=== PATIENT | female | born 1990 | race American Indian/Alaskan Native ===

== ENCOUNTER 2017-01-26 07:01 | Inpatient (IN) | payer MEDICAID, OTHER ==
[2017-01-26] MEDS ORDERED: Misoprostol 400 MCG (4 X 100 MCG TAB) RECTAL PRN (08:18)
[2017-01-26] MEDS ORDERED: Nalbuphine 10 MG/1 ML Vial IVPUSH PRN (08:18)
[2017-01-26] MEDS ORDERED: Carboprost Tromethamine 250 MCG/1 ML Amp IM PRN (08:18)
[2017-01-26] MEDS ORDERED: Lidocaine 1% 30 ML SDV INJECT PRN (08:18)
[2017-01-26] MEDS ORDERED: Sodium Chloride 0.9% 10 ML Syringe FLUSH PRN (08:18)
[2017-01-26] MEDS ORDERED: Lactated Ringers 500 ML IV ONE (08:18)
[2017-01-26] MEDS ORDERED: Methylergonovine 0.2 MG/1 ML Amp IM PRN (08:18)
--- NOTE | 2017-01-26 08:22 | PCM.LDHP ---
L&D History of Present Illness - General Date of Service: 01/26/17 Admit Problem/Dx: Patient Status Order with Admit Dx/Problem 01/26/17 08:18 Patient Status [ADT] Routine Admission Diagnosis/Problem Admission Diagnosis/Problem care - History of Present Illness Introduction:: 26-year-old at 40 weeks 2 days presented to labor and delivery with increased contractions since 4 AM today. She states the contractions started on his mild cramping. Now, they are 3-5 minutes apart and she is having to breathe through all of them. Baby has been active. No vaginal bleeding or leaking of fluid. No new headaches or vision changes. - Related Data Allergies/Adverse Reactions: Allergies Allergy/AdvReac Type Severity Reaction Status Date / Time No Known Allergies Allergy Verified 01/26/17 07:34 Past Medical History - Past Surgical History HEENT Surgical History: Reports: Tonsillectomy Social & Family History - Tobacco Use Smoking Status *Q: Current Some Day Smoker - Alcohol Use Alcohol Use History: Yes Alcohol Use in Last Twelve Months: No - Sexual History Sexual History: Reports: Single Partner (Currently) - Living Situation & Occupation Living situation: Reports: Other (Long-term significant other, [place]) Occupation: Employed H&P Review of Systems - Review of Systems: Review Of Systems: See Below General: Reports: No Symptoms HEENT: Reports: No Symptoms Pulmonary: Reports: No Symptoms Cardiovascular: Reports: No Symptoms Gastrointestinal: Reports: No Symptoms Genitourinary: Reports: No Symptoms Musculoskeletal: Reports: No Symptoms Skin: Reports: No Symptoms L&D Exam - Exam Exam: See Below - Vital Signs Weight: 92.079 kg - OB Specific Contraction Duration (sec): 60 Contraction Frequency (min): 3-4 Contraction Intensity: Moderate Movement: Active Heart Tones: Present Heart Tones per Min: 130 Heart Rate (FHR) Variability: Moderate (6-25 bmp) Presentation: Vertex - Queen Score Queen Score Cervix Position: Posterior Queen Score Consistency: Soft Queen Score Effacement: 51-70% Queen Score Dilation: 3-4 cm Queen Score Infant's Station: -3 Queen Score Total: 6 - Exam General: Alert, Oriented Lungs: Clear to Auscultation, Normal Respiratory Effort Cardiovascular: Regular Rate, Regular Rhythm. No: Systolic Murmur, Diastolic Murmur Abdomen: Normal Bowel Sounds Extremities: Normal Inspection Skin: Warm, Dry, Intact - Patient Data Lab Results Last 24 hrs: Laboratory Results - last 24 hr 01/26/17 Range/Units 07:55 WBC 8.9 (5.0-10.0) 10^3/uL RBC 4.45 (4.2-5.4) 10^6/uL Hgb 13.4 (12.0-16.0) g/dL Hct 39.0 (37.0-47.0) % MCV 87.6 (80-100) fL MCH 30.1 (27.0-34.0) pg MCHC 34.4 (33.0-35.0) g/dL Plt Count 245 (150-450) 10^3/uL Result Diagrams: 01/26/17 07:55 - Problem List (1) care in third trimester SNOMED Code(s): 418027970, 29449176, 30513434, 398610907, 520905976 ICD Code: Z34.93 - ENCNTR FOR SUPRVSN OF NORMAL PREG, UNSP, THIRD TRIMESTER Status: Acute Current Visit: Yes (2) Anemia affecting in third trimester SNOMED Code(s): 47060328, 69966148 ICD Code: O99.013 - ANEMIA COMPLICATING , THIRD TRIMESTER Status: Acute Current Visit: Yes (3) Not immune to rubella SNOMED Code(s): 080795145 ICD Code: Z78.9 - OTHER SPECIFIED HEALTH STATUS Status: Acute Current Visit: Yes (4) Impaired glucose tolerance during Status: Acute Current Visit: Yes Problem List Initiated/Reviewed/Updated: Yes Orders Last 24hrs: Active Orders 24 hr Category Date Time Status Patient Status [ADT] Routine ADT 01/26/17 08:18 Ordered Communication Order [RC] ASDIRECTED Care 01/26/17 08:18 Ordered Heart Tones [RC] PER UNIT ROUTINE Care 01/26/17 08:18 Ordered Notify Provider Vital Signs OB [RC] ASDIRECTED Care 01/26/17 08:18 Ordered Notify Provider [RC] PRN Care 01/26/17 08:18 Ordered OB Check [OM.PC] Click To Edit Care 01/26/17 07:34 Ordered Pump Management, Intrathecal [RC] ASDIRECTED Care 01/26/17 08:18 Ordered Up ad Heather [RC] ASDIRECTED Care 01/26/17 08:18 Ordered Vital Signs [RC] PER UNIT ROUTINE Care 01/26/17 08:18 Ordered Clear Liquid Diet [DIET] Diet 01/26/17 Lunch Ordered CBC WITH AUTO DIFF [HEME] Routine Lab 01/26/17 08:21 Ordered Acetaminophen [Tylenol] Med 01/26/17 08:18 Ordered 650 mg PO Q4H PRN Carboprost Tromethamine [Hemabate DS] Med 01/26/17 08:18 Ordered 250 mcg IM ASDIRECTED PRN Lactated Ringers @ 125 MLS/HR(1000ml) Med 01/26/17 08:30 Ordered Lactated Ringers [Ringers, Lactated] 1,000 ml IV ASDIRECTED Lactated Ringers [Ringers, Lactated] 500 ml Med 01/26/17 08:18 Ordered IV .BOLUS Lidocaine 1% [Xylocaine-MPF 1%] Med 01/26/17 08:18 Ordered 10 ml INJECT ASDIRECTED PRN Methylergonovine [Methergine] Med 01/26/17 08:18 Ordered 0.2 mg IM ASDIRECTED PRN Misoprostol [Cytotec] Med 01/26/17 08:18 Ordered 800 mcg RECTAL ASDIRECTED PRN Nalbuphine [Nubain] Med 01/26/17 08:18 Ordered 10 mg IVPUSH Q3H PRN Ondansetron [Zofran] Med 01/26/17 08:18 Ordered 4 mg IV Q4H PRN Sodium Chloride 0.9% [Saline Flush] Med 01/26/17 08:18 Ordered 10 ml FLUSH ASDIRECTED PRN fentaNYL [Sublimaze] Med 01/26/17 08:18 Ordered 50 mcg IVPUSH Q1H PRN Saline Lock Insert [OM.PC] Routine Oth 01/26/17 08:18 Ordered Resuscitation Status Routine Resus Stat 01/26/17 08:18 Ordered Medication Orders Acetaminophen (Tylenol) 650 mg PO Q4H PRN PRN Reason: Pain (Mild 1-3) and fever Carboprost Tromethamine (Hemabate Ds) 250 mcg IM ASDIRECTED PRN PRN Reason: HEMORRHAGE Lactated Ringer's (Ringers, Lactated) 500 mls @ 999 mls/hr IV .BOLUS ONE Stop: 01/26/17 08:48 Lactated Ringer's (Ringers, Lactated) 1,000 mls @ 125 mls/hr IV ASDIRECTED PRIYA Lidocaine HCl (Xylocaine-Mpf 1%) 10 ml INJECT ASDIRECTED PRN PRN Reason: Perineal Repair Methylergonovine Maleate (Methergine) 0.2 mg IM ASDIRECTED PRN PRN Reason: Hemorrhage Misoprostol (Cytotec) 800 mcg RECTAL ASDIRECTED PRN PRN Reason: Hemorrhage Assessment/Plan Comment:: 26-year-old at 40 weeks 2 days in active labor. 1. Admit to labor and delivery. 2. Initiate routine prepartum orders. 3. Patient does desire intrathecal later on in labor. 4. Will AROM when able. 5. Expectant management. Anticipate vaginal delivery. Lani Johnson MD
[2017-01-26] MEDS: fentaNYL 100 MCG/2 ML SDV IVPUSH PRN ×2 (11:13→12:39)
--- NOTE | 2017-01-26 11:16 | PCM.PREANE ---
Preanesthetic Assessment - Procedure Proposed Procedure: Intarthecal Narcotics for labor pain - Anesthesia/Transfusion/Family Hx Anesthesia History: Prior Anesthesia Without Reaction Family History of Anesthesia Reaction: No Transfusion History: No Prior Transfusion(s) Intubation History: Unknown - Review of Systems General: No Symptoms Pulmonary: No Symptoms Cardiovascular: No Symptoms Gastrointestinal: No symptoms Neurological: No Symptoms Other: Reports: None - Physical Assessment NPO Status Date: 01/26/17 NPO Status Time: 10:00 Pulse: 92 O2 Sat by Pulse Oximetry: 99 Respiratory Rate: 16 Blood Pressure: 126/69 Temperature: 97.8 F Vital Signs: Last Vital Signs Temp 97.4 F 01/26/17 07:10 Pulse 83 01/26/17 07:10 Resp 16 01/26/17 07:10 BP 127/79 01/26/17 07:10 Pulse Ox Height: 1.57 m Weight: 92.079 kg ASA Class: 2 Mental Status: Alert & Oriented x3 Dentition: Reports: Normal Dentition Thyro-Mental Finger Breadths: 3 Mouth Opening Finger Breadths: 4 ROM/Head Extension: Full Lungs: Clear to auscultation, Normal respiratory effort Cardiovascular: Regular Rate, Regular Rhythm - Lab Values: Laboratory Last Values WBC 8.9 10^3/uL (5.0-10.0) 01/26/17 07:55 RBC 4.45 10^6/uL (4.2-5.4) 01/26/17 07:55 Hgb 13.4 g/dL (12.0-16.0) 01/26/17 07:55 Hct 39.0 % (37.0-47.0) 01/26/17 07:55 MCV 87.6 fL (80-100) 01/26/17 07:55 MCH 30.1 pg (27.0-34.0) 01/26/17 07:55 MCHC 34.4 g/dL (33.0-35.0) 01/26/17 07:55 Plt Count 245 10^3/uL (150-450) 01/26/17 07:55 - Allergies Allergies/Adverse Reactions: Allergies Allergy/AdvReac Type Severity Reaction Status Date / Time No Known Allergies Allergy Verified 01/26/17 07:34 - Blood Blood Available: No Product(s) Available: None - Anesthesia Plan Pre-Op Medication Ordered: None - Acknowledgements Anesthesia Type Planned: Spinal Pt an Appropriate Candidate for the Planned Anesthesia: Yes Alternatives and Risks of Anesthesia Discussed w Pt/Guardian: Yes Pt/Guardian Understands and Agrees with Anesthesia Plan: Yes Additional Comments: R/B of intarthecal narcotics is discussed with patient and she agreed. consent is signed. Patient decided to wait until the pain gets very unbearable to get the spinal narcotics. Denisa, her RN is informed. 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: - Past Surgical History HEENT Surgical History: Reports: Tonsillectomy - SUBSTANCE USE Smoking Status *Q: Current Some Day Smoker Tobacco Use Within Last Twelve Months: Cigarettes Second Hand Smoke Exposure: Yes Recreational Drug Use History: No - CURRENT (IN HOUSE) MEDS Current Meds: Current Medications Acetaminophen (Tylenol) 650 mg PO Q4H PRN PRN Reason: Pain (Mild 1-3) and fever Carboprost Tromethamine (Hemabate Ds) 250 mcg IM ASDIRECTED PRN PRN Reason: HEMORRHAGE Fentanyl (Sublimaze) 50 mcg IVPUSH Q1H PRN PRN Reason: Pain (moderate 4-6) Lactated Ringer's (Ringers, Lactated) 1,000 mls @ 125 mls/hr IV ASDIRECTED PRIYA Lidocaine HCl (Xylocaine-Mpf 1%) 10 ml INJECT ASDIRECTED PRN PRN Reason: Perineal Repair Methylergonovine Maleate (Methergine) 0.2 mg IM ASDIRECTED PRN PRN Reason: Hemorrhage Misoprostol (Cytotec) 800 mcg RECTAL ASDIRECTED PRN PRN Reason: Hemorrhage Nalbuphine HCl (Nubain) 10 mg IVPUSH Q3H PRN PRN Reason: Pain (moderate 4-6) Last Admin: 01/26/17 08:45 Dose: 10 mg Ondansetron HCl (Zofran) 4 mg IV Q4H PRN PRN Reason: Nausea/Vomiting Sodium Chloride (Saline Flush) 10 ml FLUSH ASDIRECTED PRN PRN Reason: Keep Vein Open Discontinued Medications Lactated Ringer's (Ringers, Lactated) 500 mls @ 999 mls/hr IV .BOLUS ONE Stop: 01/26/17 08:48 Last Admin: 01/26/17 08:45 Dose: 999 mls/hr
[2017-01-26] MEDS ORDERED: fentaNYL 100 MCG/2 ML SDV ITHECAL ONE ×2 (11:19→16:40)
[2017-01-26] MEDS: Ondansetron 4 MG/2 ML SDV IV PRN ×2 (11:20→16:33)
[2017-01-26] MEDS ORDERED: fentaNYL 100 MCG/2 ML SDV ONE ×2 (12:53→16:40)
[2017-01-26] MEDS: Lactated Ringers 1,000 ML IV SCH ×2 (13:11→20:28)
[2017-01-26] MEDS ORDERED: ePHEDrine 50 MG/ML SDV ONE (13:14)
[2017-01-26] MEDS ORDERED: ePHEDrine 50 MG/ML SDV IVPUSH PRN (13:38)
--- NOTE | 2017-01-26 13:38 | PCM.PRNOTE ---
- Free Text/Narrative Note: Patient ID'd. Chart reviewed, in sitting position L4-5 id'd sterile prep with betadine and draped. skin wheel with 1% lidocaine 24 G pencan needle advanced via 18 g introducer into SA space, negative blood, negative paresthesia, Positive CSF. 6 mg hyperbaric marcaine + 20 mcg sufentanyl + 30 mcg fentanyl + epinepherine wash. Immediate pain relief achieved. Level t8 bilateral. Hypotension treated with 15 mg ephedrine
[2017-01-26] MEDS ORDERED: ePHEDrine 50 MG/ML SDV IV ONE (16:40)
--- NOTE | 2017-01-26 17:02 | PCM.PRNOTE ---
- Free Text/Narrative Note: Called back to to give a second intrathecal. Pain score is 8 and the patient is pushing. In sitting position L4-5 id'd sterile prep with betadine and draped. skin wheel with 1% lidocaine 24 G pencan needle advanced via 18 g introducer into SA space, negative blood, negative paresthesia, Positive CSF. 3 mg hyperbaric marcaine + 20 mcg sufentanyl + 30 mcg fentanyl + epinepherine wash. Immediate pain relief achieved. Level t8 bilateral. Hypotension treated with 15 mg ephedrine
[2017-01-26] MEDS ORDERED: Benzocaine/Menthol 20%-0.5% Spray 56 GM Canister TOP PRN (17:50)
[2017-01-26] MEDS ORDERED: Simethicone 80 MG Tab.Chew PO PRN (17:50)
[2017-01-26] MEDS ORDERED: Oxytocin 10 Units/1 ML SDV IM PRN (17:50)
--- NOTE | 2017-01-26 17:59 | PCM.DEL ---
L & D Note - General Info Date of Service: 01/26/17 Mother's Due Date: 01/24/17 - Delivery Note Labor: spontaneous Delivery Outcome: Livebirth Infant Delivery Method: Spontaneous Vaginal Delivery Presentation: Right Occiput Anterior (RAULITO) Nuchal Cord: None Anesthesia Type: Intrathecal Amniotic Fluid Description: Meconium stained Episiotomy Type: None Laceration: none Placenta: intact, spontaneous Cord: 3 vessels Estimated Blood Loss: 150 Resuscitation Needed: Yes [place]: Bulb Syringe, Stimulated, Warmed, [place] Used Score 1 min: 8 Score 5 min: 9 Delivery Comments (Free Text/Narrative):: 26-year-old, now , presented to labor and delivery in active labor. She progressed to complete dilation over 7 hours. She received an intrathecal x2 for pain relief. Membranes spontaneously ruptured about 5 hours after she arrived to the floor for meconium-stained fluid. After progressing to complete dilation, patient pushed for approximately 1 1/2 hours before delivering a viable female infant with Apgars of 8 and 9 at 1 and 5 minutes respectively. Measurements are pending at this time. The placenta delivered approximately 15 minutes later. It was intact and a 3-vessel cord was noted. Perineum was noted to be intact. The patient tolerated the procedure well, and there were no immediate complications. Lani Johnson MD - Patient Data Vitals - most recent: Last Vital Signs Temp 36.6 C 01/26/17 11:16 Pulse 81 01/26/17 14:00 Resp 16 01/26/17 13:18 BP 91/46 L 01/26/17 14:00 Pulse Ox 96 01/26/17 14:00 Weight - most recent: 92.079 kg I&O - last 24 hours: Intake & Output 01/26/17 01/26/17 01/26/17 06:59 14:59 22:59 Intake Total 1000 Balance 1000 Lab Results last 24 hrs: Laboratory Results - last 24 hr 01/26/17 Range/Units 07:55 WBC 8.9 (5.0-10.0) 10^3/uL RBC 4.45 (4.2-5.4) 10^6/uL Hgb 13.4 (12.0-16.0) g/dL Hct 39.0 (37.0-47.0) % MCV 87.6 (80-100) fL MCH 30.1 (27.0-34.0) pg MCHC 34.4 (33.0-35.0) g/dL Plt Count 245 (150-450) 10^3/uL Med Orders - Current: Current Medications Acetaminophen (Tylenol) 650 mg PO Q4H PRN PRN Reason: Pain (Mild 1-3) and fever Carboprost Tromethamine (Hemabate Ds) 250 mcg IM ASDIRECTED PRN PRN Reason: HEMORRHAGE Ephedrine Sulfate (Ephedrine Sulfate) 5 mg IVPUSH ONETIME PRN PRN Reason: Mean <70 mmHg Methylergonovine Maleate (Methergine) 0.2 mg IM ASDIRECTED PRN PRN Reason: Hemorrhage Misoprostol (Cytotec) 800 mcg RECTAL ASDIRECTED PRN PRN Reason: Hemorrhage Sodium Chloride (Saline Flush) 10 ml FLUSH ASDIRECTED PRN PRN Reason: Keep Vein Open Discontinued Medications Ephedrine Sulfate (Ephedrine Sulfate) Confirm Administered Dose 50 mg .ROUTE .STK-MED ONE Stop: 01/26/17 13:15 Last Admin: 01/26/17 15:35 Dose: Not Given Ephedrine Sulfate (Ephedrine Sulfate) 30 mg IV .STK-MED ONE Stop: 01/26/17 16:41 Fentanyl (Sublimaze) 50 mcg IVPUSH Q1H PRN PRN Reason: Pain (moderate 4-6) Last Admin: 01/26/17 12:39 Dose: 50 mcg Fentanyl (Sublimaze) Confirm Administered Dose 100 mcg .ROUTE .STK-MED ONE Stop: 01/26/17 12:54 Last Admin: 01/26/17 15:36 Dose: Not Given Fentanyl (Sublimaze) 30 mcg ITHECAL .STK-MED ONE Stop: 01/26/17 16:41 Fentanyl (Sublimaze) Confirm Administered Dose 100 mcg .ROUTE .STK-MED ONE Stop: 01/26/17 16:41 Lactated Ringer's (Ringers, Lactated) 500 mls @ 999 mls/hr IV .BOLUS ONE Stop: 01/26/17 08:48 Last Admin: 01/26/17 08:45 Dose: 999 mls/hr Lactated Ringer's (Ringers, Lactated) 1,000 mls @ 125 mls/hr IV ASDIRECTED PRIYA Last Admin: 01/26/17 13:11 Dose: 125 mls/hr Lidocaine HCl (Xylocaine-Mpf 1%) 10 ml INJECT ASDIRECTED PRN PRN Reason: Perineal Repair Nalbuphine HCl (Nubain) 10 mg IVPUSH Q3H PRN PRN Reason: Pain (moderate 4-6) Last Admin: 01/26/17 08:45 Dose: 10 mg Ondansetron HCl (Zofran) 4 mg IV Q4H PRN PRN Reason: Nausea/Vomiting Last Admin: 01/26/17 11:20 Dose: 4 mg Sufentanil Citrate (Sufenta) Confirm Administered Dose 50 mcg .ROUTE .STK-MED ONE Stop: 01/26/17 12:55 Last Admin: 01/26/17 15:36 Dose: Not Given Sufentanil Citrate (Sufenta) 20 mcg ITHECAL .STK-MED ONE Stop: 01/26/17 16:41 Sufentanil Citrate (Sufenta) Confirm Administered Dose 50 mcg .ROUTE .STK-MED ONE Stop: 01/26/17 16:42 - Problem List & Annotations (1) care in third trimester SNOMED Code(s): 787610266, 41170464, 43584116, 911005886, 413218503 Code(s): Z34.93 - ENCNTR FOR SUPRVSN OF NORMAL PREG, UNSP, THIRD TRIMESTER Status: Acute Current Visit: Yes (2) Anemia affecting in third trimester SNOMED Code(s): 53996301, 09847022 Code(s): O99.013 - ANEMIA COMPLICATING , THIRD TRIMESTER Status: Acute Current Visit: Yes (3) Not immune to rubella SNOMED Code(s): 356464969 Code(s): Z78.9 - OTHER SPECIFIED HEALTH STATUS Status: Acute Current Visit: Yes (4) Impaired glucose tolerance during Status: Acute Current Visit: Yes (5) (normal spontaneous vaginal delivery) SNOMED Code(s): 35658260 Code(s): O80 - ENCOUNTER FOR FULL-TERM UNCOMPLICATED DELIVERY Status: Acute Current Visit: Yes - Problem List Review Problem List Initiated/Reviewed/Updated: Yes - My Orders Last 24 Hours: My Active Orders 01/26/17 07:34 OB Check [OM.PC] Click To Edit 01/26/17 08:18 Patient Status [ADT] Routine Notify Provider Vital Signs OB [RC] ASDIRECTED Notify Provider [RC] PRN Pump Management, Intrathecal [RC] ASDIRECTED Up ad Heather [RC] ASDIRECTED Vital Signs [RC] PER UNIT ROUTINE Acetaminophen [Tylenol] 650 mg PO Q4H PRN Carboprost Tromethamine [Hemabate DS] 250 mcg IM ASDIRECTED PRN Methylergonovine [Methergine] 0.2 mg IM ASDIRECTED PRN Misoprostol [Cytotec] 800 mcg RECTAL ASDIRECTED PRN Sodium Chloride 0.9% [Saline Flush] 10 ml FLUSH ASDIRECTED PRN Saline Lock Insert [OM.PC] Routine Resuscitation Status Routine 01/26/17 17:50 Vital Signs [RC] PFP Benzocaine/Menthol [Dermoplast Pain Relief [place]] See Dose Instructions TOP Q4H PRN Docusate Sodium [Colace] 100 mg PO BID PRN Ibuprofen [Motrin] 800 mg PO Q8H PRN Oxytocin [Pitocin] 10 unit IM ONETIME PRN Simethicone 80 mg PO Q4H PRN Assess Lochia [WOMSER] Per Unit Routine Assess Uterine Involution [WOMSER] Per Unit Routine Breast Pump [WOMSER] Per Unit Routine Ice Therapy [OM.PC] Per Unit Routine Perineal Care [OM.PC] Per Unit Routine Saline Lock Insert [OM.PC] Urgent Sitz Bath [OM.PC] Per Unit Routine 01/26/17 Breakfast Regular Diet [DIET] 01/27/17 09:00 Vit with Ca/FA/Iron [ Plus Iron] 1 each PO DAILY - Assessment Assessment:: 26-year-old status post at 40w2d - Plan Plan:: 1. Initiate routine orders 2. Mother plans to bottlefeed 3. Anticipate discharge 01/28/17 but is considering discharge at [address] Chou will care for the patient over the weekend. Lani Johnson MD
[2017-01-26] MEDS ORDERED: Oxytocin/Normal Saline 30 UNIT/500 ML BAG IV SCH (18:45)
[2017-01-26] MEDS: Ibuprofen 800 MG Tab PO PRN (21:16)
[2017-01-26] MEDS: Docusate Sodium 100 MG Cap PO PRN (21:16)
[2017-01-26] MEDS: Acetaminophen 325 MG Tab PO PRN (23:20)
[2017-01-27] MEDS: Ibuprofen 800 MG Tab PO PRN ×2 (06:26→19:52)
[2017-01-27] MEDS: Prenatal Multivitamin with Calcium/Folic Acid/Iron Tab PO SCH (08:38)
[2017-01-27] MEDS: Docusate Sodium 100 MG Cap PO PRN ×2 (08:38→19:52)
[2017-01-27] MEDS: Acetaminophen 325 MG Tab PO PRN ×2 (11:46→23:19)
--- NOTE | 2017-01-27 12:54 | PCM.POSTAN ---
POST ANESTHESIA ASSESSMENT - MENTAL STATUS Mental Status: alert, oriented - VITAL SIGNS Pulse Rate: 82 SaO2: 100 Resp Rate: 18 Blood Pressure: 132/80 Temperature: 97.2 F - RESPIRATORY Respiratory Status: respiratory rate WNL, airway patent, O2 saturation stable - CARDIOVASCULAR CV Status: pulse rate WNL, blood pressure stable - GASTROINTESTINAL GI Status: no symptoms - POST OP HYDRATION Hydration Status: adequate & stable (Patient in bed, ambulated without any issue , regained full function of her lower extremities. Pleased with her anesthetic plan of care.)
--- NOTE | 2017-01-27 13:33 | PN ---
DATE: 01/27/2017 The patient's is day 1 from a spontaneous vaginal delivery. She and baby are both doing well. She reports her lochia is minimal. PHYSICAL EXAMINATION: Vital Signs: She is afebrile. Heart rate 85 to 102, blood pressure 118 to 146 over 65 to 71, respiratory rate 16, O2 sat 97%. Abdomen: The patient's fundus is firm below the umbilicus. Extremities: Have no tenderness. No edema. The patient's blood type is O positive. She is rubella nonimmune. ASSESSMENT AND PLAN: day 1, status post vaginal delivery. She and baby are both doing well. We will continue care and likely discharge the patient tomorrow. [facility] /[id number]
[2017-01-28] MEDS: Acetaminophen 325 MG Tab PO PRN (07:33)
[2017-01-28] MEDS: Prenatal Multivitamin with Calcium/Folic Acid/Iron Tab PO SCH ×2 (07:33→08:45)
[2017-01-28] MEDS: Docusate Sodium 100 MG Cap PO PRN (07:34)
[2017-01-28] MEDS: Ibuprofen 800 MG Tab PO PRN (07:34)
[2017-01-28 07:47] VITALS: BP 122/67
[2017-01-28] MEDS ORDERED: Measles, Mumps & Rubella Vaccine 0.5 ML SDV SUBCUT ONE (08:37)
--- NOTE | 2017-01-28 12:25 | DISCH ---
DATE: 01/28/2017 SUBJECTIVE: The patient is day 2 status post vaginal delivery at term. Mom and baby are both doing well. The patient has no complaints. PHYSICAL EXAMINATION: Vital Signs: The patient is afebrile. Heart rate 67 to 82, blood pressure 117 to 130 over 67 to 80, respiratory rate 16 to 18, and O2 sat 97%. Abdomen: The patient's fundus is firm below the umbilicus. Extremities: Have no tenderness. No edema. The patient is O positive. Rubella nonimmune. LABORATORY DATA: On admission, her hemoglobin was 13.4, platelets were 245. Delivery was uncomplicated. ASSESSMENT AND PLAN: day #2 status post vaginal delivery. I would like to discharge this patient to home with followup in 6 weeks. She will call if she is having any problems. [facility] /[id number] MTDD
== END 2017-01-28 11:20 | disposition home or self-care (01) | DRG 775 ==
LOC: DL.OBCHECK 07:01 → UNDOADMOB 07:43 → DL.OB 07:43 → UNDOADMOB 17:33 → DL.OB 17:33 → OBSVTOIN 17:33 → INTOOBSV 18:01 → OBSVTOIN 18:01 → UNDODISOB 01-28 11:20
PROVIDERS: ADMIT Family Medicine; ATTEND Family Medicine
PROC: 10E0XZZ Delivery of Products of Conception, External Approach (ICD-10-PCS; principal; 2017-01-26)
DX: O99.02 Anemia complicating childbirth (principal); Z3A.40 40 weeks gestation of pregnancy; Z37.0 Single live birth
CPT/HCPCS: 01967; 36415; 85027; 90707; A9270-GY; J2300; J2405; J2590; J3010; J7120

== ENCOUNTER 2019-04-28 12:13 | Inpatient (IN) | payer MEDICAID, OTHER ==
[2019-04-28] MEDS ORDERED: Lidocaine 1% 30 ML SDV INJECT PRN (12:28)
[2019-04-28] MEDS ORDERED: Lactated Ringers 500 ML IV ONE (12:28)
[2019-04-28] MEDS ORDERED: fentaNYL 100 MCG/2 ML SDV IVPUSH PRN (12:28)
[2019-04-28] MEDS ORDERED: Misoprostol 400 MCG (4 X 100 MCG TAB) RECTAL PRN (12:28)
[2019-04-28] MEDS ORDERED: Tranexamic Acid 1,000 MG in Sodium Chloride 0.9% 100 ML IV PRN (12:28)
[2019-04-28] MEDS ORDERED: Sodium Chloride 0.9% 10 ML Syringe FLUSH PRN (12:28)
[2019-04-28] MEDS ORDERED: Carboprost Tromethamine 250 MCG/1 ML Amp IM PRN (12:28)
[2019-04-28] MEDS ORDERED: Methylergonovine 0.2 MG/1 ML Amp IM PRN (12:28)
[2019-04-28] MEDS ORDERED: Ondansetron 4 MG/2 ML SDV IV PRN (12:28)
[2019-04-28] MEDS ORDERED: Oxytocin/Normal Saline 30 UNIT/500 ML BAG IV SCH (12:30)
[2019-04-28] MEDS ORDERED: Nalbuphine 10 MG/1 ML Vial IV PRN (12:31)
[2019-04-28] MEDS ORDERED: Nalbuphine 10 MG/1 ML Vial IM PRN (12:31)
--- NOTE | 2019-04-28 12:32 | PCM.LDHP ---
L&D History of Present Illness - General Date of Service: 04/28/19 Admit Problem/Dx: Patient Status Order with Admit Dx/Problem 04/28/19 12:28 Patient Status [ADT] Routine Admission Diagnosis/Problem Admission Diagnosis/Problem care Source of Information: Patient History Limitations: Reports: No Limitations - History of Present Illness Introduction:: 28-year-old at 39w0d presents to L&D with increased contractions since 0800 today. For the past hour or so, her contractions have become more painful and are about 5 minutes apart. Baby has been active. No vaginal bleeding or leaking of fluid. No new headache or visions changes. - Related Data Allergies/Adverse Reactions: Allergies Allergy/AdvReac Type Severity Reaction Status Date / Time No Known Allergies Allergy Verified 01/26/17 07:34 Past Medical History [employer] History: Reports: - Past Surgical History HEENT Surgical History: Reports: Tonsillectomy Social & Family History - Family History Family Medical History: Noncontributory - Caffeine Use Caffeine Use: Reports: Soda - Sexual History Sexual History: Reports: Single Partner (Currently) - Living Situation & Occupation Living situation: Reports: Other (Long-term significant other, [place]) Occupation: Employed H&P Review of Systems - Review of Systems: Review Of Systems: See Below General: Reports: No Symptoms HEENT: Reports: No Symptoms Pulmonary: Reports: No Symptoms Cardiovascular: Reports: No Symptoms Genitourinary: Reports: No Symptoms Musculoskeletal: Reports: Shoulder Pain, Back Pain Skin: Reports: No Symptoms L&D Exam - Exam Exam: See Below - OB Specific Contraction Duration (sec): 60 Contraction Intensity: Moderate to Strong Movement: Active Heart Tones: Present Heart Tones per Min: 135 Heart Rate (FHR) Variability: Moderate (6-25 bmp) Presentation: Vertex - Queen Score Queen Score Cervix Position: Midposition Queen Score Consistency: Soft Queen Score Effacement: 51-70% Queen Score Dilation: > 5 cm Queen Score Infant's Station: -2 Queen Score Total: 9 - Exam General: Alert, Oriented HEENT: Conjunctiva Clear, Mucosa Moist & [place], Posterior Pharynx Clear Neck: Supple Lungs: Clear to Auscultation, Normal Respiratory Effort Cardiovascular: Regular Rate, Regular Rhythm. No: Systolic Murmur, Diastolic Murmur Genitourinary: Normal external exam Back Exam: Normal Inspection, Full Range of Motion Extremities: No Pedal Edema Skin: Warm, Dry, Intact - Patient Data Result Diagrams: 04/28/19 12:42 - Problem List (1) Late care affecting in third trimester SNOMED Code(s): 415322781, 154636515, 179327565 ICD Code: O09.33 - SUPRVSN OF PREG W INSUFFICIENT ANTENAT CARE, THIRD TRIMESTER Status: Acute Current Visit: Yes (2) Anemia affecting in third trimester SNOMED Code(s): 13875473, 74378858 ICD Code: O99.013 - ANEMIA COMPLICATING , THIRD TRIMESTER Status: Acute Current Visit: No (3) Impaired glucose tolerance during Status: Acute Current Visit: No (4) Not immune to rubella SNOMED Code(s): 036210940 ICD Code: Z78.9 - OTHER SPECIFIED HEALTH STATUS Status: Acute Current Visit: No (5) care in third trimester SNOMED Code(s): 986347650, 92863586, 51543038, 129902196, 532118230 ICD Code: Z34.93 - ENCNTR FOR SUPRVSN OF NORMAL PREG, UNSP, THIRD TRIMESTER Status: Acute Current Visit: No Problem List Initiated/Reviewed/Updated: Yes Orders Last 24hrs: Active Orders 24 hr Category Date Time Status Patient Status [ADT] Routine ADT 04/28/19 12:28 Ordered Communication Order [RC] ASDIRECTED Care 04/28/19 12:28 Ordered Heart Tones [RC] PER UNIT ROUTINE Care 04/28/19 12:28 Ordered Notify Provider Vital Signs OB [RC] ASDIRECTED Care 04/28/19 12:28 Ordered Notify Provider [RC] PRN Care 04/28/19 12:28 Ordered POC Labs [RC] ASDIRECTED Care 04/28/19 12:28 Ordered Pump Management, Intrathecal [RC] ASDIRECTED Care 04/28/19 12:28 Ordered Up ad Heather [RC] ASDIRECTED Care 04/28/19 12:28 Ordered Vital Signs [RC] PER UNIT ROUTINE Care 04/28/19 12:28 Ordered Clear Liquid Diet [DIET] Diet 04/28/19 Lunch Ordered CBC W/O DIFF,HEMOGRAM [HEME] Routine Lab 04/28/19 12:28 Ordered DRUG SCREEN URINE BIORAD [URCHEM] Routine Lab 04/28/19 12:28 Ordered Acetaminophen [Tylenol] Med 04/28/19 12:28 Ordered 650 mg PO Q4H PRN Carboprost Tromethamine [Hemabate DS] Med 04/28/19 12:28 Ordered 250 mcg IM ASDIRECTED PRN Lactated Ringers @ 125 MLS/HR(1000ml) Med 04/28/19 12:30 Ordered Lactated Ringers [Ringers, Lactated] 1,000 ml IV ASDIRECTED Lactated Ringers [Ringers, Lactated] 500 ml Med 04/28/19 12:28 Ordered IV .BOLUS Lidocaine 1% [Xylocaine-MPF 1%] Med 04/28/19 12:28 Ordered 30 ml INJECT ASDIRECTED PRN Methylergonovine [Methergine] Med 04/28/19 12:28 Ordered 0.2 mg IM ASDIRECTED PRN Nalbuphine [Nubain] Med 04/28/19 12:31 Ordered 10 mg IV Q3H PRN Nalbuphine [Nubain] Med 04/28/19 12:31 Ordered 20 mg IM Q3H PRN Ondansetron [Zofran] Med 04/28/19 12:28 Ordered 4 mg IV Q4H PRN Oxytocin 30 Units in NS @ 2 MUNITS/MIN(500ml) Med 04/28/19 12:30 Ordered Oxytocin/Normal Saline [Pitocin in NS 30 UNIT/500 ML] 30 unit in 500 ml IV TITRATE Penicillin G Potassium [Pfizerpen] 3 millunits Med 04/28/19 14:00 Ordered Sodium Chloride 0.9% [Normal Saline] 100 ml IV Q4HR Penicillin G Potassium [Pfizerpen] 5 millunits Med 04/28/19 12:28 Ordered Sodium Chloride 0.9% [Normal Saline] 100 ml IV ONETIME Sodium Chloride 0.9% [Saline Flush] Med 04/28/19 12:28 Ordered 10 ml FLUSH ASDIRECTED PRN Tranexamic Acid [Cyklokapron] 1,000 mg Med 04/28/19 12:28 Ordered Sodium Chloride 0.9% [Normal Saline] 100 ml IV ONETIME fentaNYL [Sublimaze] Med 04/28/19 12:28 Ordered 50 mcg IVPUSH Q1H PRN miSOPROStol [Cytotec] Med 04/28/19 12:28 Ordered 800 mcg RECTAL ASDIRECTED PRN Saline Lock Insert [OM.PC] Routine Oth 04/28/19 12:28 Ordered Resuscitation Status Routine Resus Stat 04/28/19 12:28 Ordered Medication Orders Acetaminophen (Tylenol) 650 mg PO Q4H PRN PRN Reason: Pain (Mild 1-3) and fever Carboprost Tromethamine (Hemabate Ds) 250 mcg IM ASDIRECTED PRN PRN Reason: HEMORRHAGE Fentanyl (Sublimaze) 50 mcg IVPUSH Q1H PRN PRN Reason: Pain (moderate 4-6) Lactated Ringer's (Ringers, Lactated) 500 mls @ 999 mls/hr IV .BOLUS ONE Stop: 04/28/19 12:58 Lactated Ringer's (Ringers, Lactated) 1,000 mls @ 125 mls/hr IV ASDIRECTED PRIYA Oxytocin/Sodium Chloride (Pitocin In Ns 30 Unit/500 Ml) 30 unit in 500 mls @ 2 mls/hr IV TITRATE PRIYA; Protocol Penicillin G Potassium 5 (millunits/ Sodium Chloride) 100 mls @ 200 mls/hr IV ONETIME ONE Stop: 04/28/19 12:57 Penicillin G Potassium 3 (millunits/ Sodium Chloride) 100 mls @ 200 mls/hr IV Q4HR PRIYA Tranexamic Acid 1,000 mg/ (Sodium Chloride) 110 mls @ 660 mls/hr IV ONETIME PRN PRN Reason: Bleeding Lidocaine HCl (Xylocaine-Mpf 1%) 30 ml INJECT ASDIRECTED PRN PRN Reason: Perineal Repair Methylergonovine Maleate (Methergine) 0.2 mg IM ASDIRECTED PRN PRN Reason: Hemorrhage Misoprostol (Cytotec) 800 mcg RECTAL ASDIRECTED PRN PRN Reason: Hemorrhage Ondansetron HCl (Zofran) 4 mg IV Q4H PRN PRN Reason: Nausea/Vomiting Sodium Chloride (Saline Flush) 10 ml FLUSH ASDIRECTED PRN PRN Reason: Keep Vein Open Assessment/Plan Comment:: 28-year-old at 39w0d presented to L&D in active. labor 1. Admit to L&D an initiate routine intrapartum orders 2. AROM when able 3. Patient does desire intrathecal. 4. Expectant management. Anticipate Lani Johnson MD
[2019-04-28] MEDS: Lactated Ringers 1,000 ML IV SCH ×3 (12:42→13:40)
[2019-04-28] MEDS ORDERED: Penicillin G Potassium 5 MILLUNITS in Sodium Chloride 0.9% 100 ML IV ONE (12:45)
[2019-04-28] MEDS ORDERED: fentaNYL 100 MCG/2 ML SDV ONE (13:01)
[2019-04-28] MEDS ORDERED: EPINEPHrine 1 MG/1 ML Amp ONE (13:01)
[2019-04-28] MEDS ORDERED: ePHEDrine 50 MG/ML SDV ONE (13:23)
[2019-04-28] MEDS ORDERED: Penicillin G Potassium 3 MILLUNITS in Sodium Chloride 0.9% 100 ML IV SCH (14:00)
--- NOTE | 2019-04-28 14:07 | PCM.PRNOTE ---
- Free Text/Narrative Note: Requested to provide analgesia to full term patient in severe pain. Upon entering the room, patient is sitting on edge of bed complaining of severe abdominal/pelvic pain and discomfort. Pt is dilated to 5 but screaming like a 12 dilation. Procedure was discussed with patient including adverse outcomes and expectations. Pt consented to analgesia, SAB/IT. Pt placed into a proper sitting position. Landmarks for SAB/IT were identified and marked. Hands were washed and appropriate PPE was applied. Back was prepped with betadine x3. A sterile, transparent, fenestrated drape was applied. Excess betadine was removed. Using 3 mL of a 1% lidocaine solution, a skin wheel was placed at the L2/L3 interspace. A 24 ga (4 inch) Pencan spinal needle was inserted until positive for CSF. Negative for heme or paresthesias. Injected fentanyl 30 mcg , sufentanil 25 mcg, and 6.75 mg of a 0.75% bupivacaine solution with an epi wash. Pt was placed left lateral position for approximately 10 minutes. Developed Heart decels with contractions. Down to 60s for short periods but would increase after contractions. Pt is extremely dehydrated. One moderately "long" decel brought back Dr. Johnson. We turned the patient left to right, gave IV fluid, and O2. I did give a total of 35 mg of ephedrine over the course of 30 minutes to augment blood pressure. heart rate now stable , even with contractions. FHR in the 140s. Pt is complete. going to let her labor down. Will continue to monitor. Procedure Date & Time: 04/28/19 [id number]
--- NOTE | 2019-04-28 17:28 | PCM.DEL ---
L & D Note - General Info Date of Service: 04/28/19 Mother's Due Date: 05/05/19 - Delivery Note Labor: Augmented by ARM Delivery Outcome: Livebirth Delivery Method: Spontaneous Vaginal Delivery-Single Presentation: Vertex Nuchal Cord: None Anesthesia Type: Intrathecal Amniotic Fluid Description: Clear Episiotomy Type: None Laceration: None Placenta: Intact, Spontaneous Cord: 3 Vessels Estimated Blood Loss: 200 Resuscitation Needed: Yes : Bulb Syringe, Stimulated, Warmer Used Provider: Lani Johnson Score 1 min: 7 Score 5 min: 9 Delivery Comments (Free Text/Narrative):: 28-year-old presented to L&d with increased contractions for 4 hours. Was found to be 5 cm and admitted. She continued to rapidly progress. She received in intrathecal around 1230. A short time later, patient developed hypotension and FHT dropped to the 60s. With the use of ephedrine, repositioning, and oxygen, FHT gradually recovered. Patient progressed to complete dilation without further intervention. Patient received 1 dose PCN for GBS positive status. She pushed 3 times, delivering a viable female infant with Apgars of 7 and 9 at 1 and 5 minutes respectively. Cord was clamped x2 and cut. Cord blood was collected. Placenta delivered spontaneously a few minutes later. Perineum was inspected and no lacerations were noted. Uterus was noted to be firm and bleeding was appropriate. Patient tolerated the procedure well, and there were no immediate complications. - General Info Date of Service: 04/28/19 - Patient Data Lab Results Last 24 Hours: Laboratory Results - last 24 hr 04/28/19 04/28/19 Range/Units 12:42 14:26 WBC 13.0 H (5.0-10.0) 10^3/uL RBC 4.15 L (4.2-5.4) 10^6/uL Hgb 12.2 (12.0-16.0) g/dL Hct 35.6 L (37.0-47.0) % MCV 85.8 (80-100) fL MCH 29.4 (27.0-34.0) pg MCHC 34.3 (33.0-35.0) g/dL Plt Count 259 (150-450) 10^3/uL Urine Opiates Screen Negative (NEGATIVE) Ur Oxycodone Screen Positive H (NEGATIVE) Urine Methadone Screen Negative (NEGATIVE) Ur Barbiturates Screen Negative (NEGATIVE) U Tricyclic Antidepress Negative (NEGATIVE) Ur Phencyclidine Scrn Negative (NEGATIVE) Ur Amphetamine Screen Negative (NEGATIVE) U Methamphetamines Scrn Negative (NEGATIVE) Urine MDMA Screen Positive H (NEGATIVE) U Benzodiazepines Scrn Negative (NEGATIVE) Urine Cocaine Screen Negative (NEGATIVE) U Marijuana (THC) Screen Negative (NEGATIVE) Med Orders - Current: Current Medications Acetaminophen (Tylenol) 650 mg PO Q4H PRN PRN Reason: Pain (Mild 1-3) and fever Carboprost Tromethamine (Hemabate Ds) 250 mcg IM ASDIRECTED PRN PRN Reason: HEMORRHAGE Fentanyl (Sublimaze) 50 mcg IVPUSH Q1H PRN PRN Reason: Pain (moderate 4-6) Lactated Ringer's (Ringers, Lactated) 1,000 mls @ 125 mls/hr IV ASDIRECTED PRIYA Last Admin: 04/28/19 13:40 Dose: 150 mls/hr Oxytocin/Sodium Chloride (Pitocin In Ns 30 Unit/500 Ml) 30 unit in 500 mls @ 2 mls/hr IV TITRATE PRIYA; Protocol Penicillin G Potassium 3 (millunits/ Sodium Chloride) 100 mls @ 200 mls/hr IV Q4HR PRIYA Tranexamic Acid 1,000 mg/ (Sodium Chloride) 110 mls @ 660 mls/hr IV ONETIME PRN PRN Reason: Bleeding Lidocaine HCl (Xylocaine-Mpf 1%) 30 ml INJECT ASDIRECTED PRN PRN Reason: Perineal Repair Methylergonovine Maleate (Methergine) 0.2 mg IM ASDIRECTED PRN PRN Reason: Hemorrhage Misoprostol (Cytotec) 800 mcg RECTAL ASDIRECTED PRN PRN Reason: Hemorrhage Nalbuphine HCl (Nubain) 20 mg IM Q3H PRN PRN Reason: Pain Nalbuphine HCl (Nubain) 10 mg IV Q3H PRN PRN Reason: Pain Ondansetron HCl (Zofran) 4 mg IV Q4H PRN PRN Reason: Nausea/Vomiting Last Admin: 04/28/19 13:30 Dose: 4 mg Sodium Chloride (Saline Flush) 10 ml FLUSH ASDIRECTED PRN PRN Reason: Keep Vein Open Discontinued Medications Ephedrine Sulfate (Ephedrine Sulfate) Confirm Administered Dose 50 mg .ROUTE .STK-MED ONE Stop: 04/28/19 13:24 Epinephrine HCl (Adrenalin) Confirm Administered Dose 1 mg .ROUTE .STK-MED ONE Stop: 04/28/19 13:02 Fentanyl (Sublimaze) Confirm Administered Dose 100 mcg .ROUTE .STK-MED ONE Stop: 04/28/19 13:02 Lactated Ringer's (Ringers, Lactated) 500 mls @ 999 mls/hr IV .BOLUS ONE Stop: 04/28/19 12:58 Penicillin G Potassium 5 (millunits/ Sodium Chloride) 100 mls @ 200 mls/hr IV ONETIME ONE Stop: 04/28/19 13:14 Last Admin: 04/28/19 12:45 Dose: 200 mls/hr Sufentanil Citrate (Sufenta) Confirm Administered Dose 50 mcg .ROUTE .STK-MED ONE Stop: 04/28/19 13:03 - Problem List & Annotations (1) Late care affecting in third trimester SNOMED Code(s): 620181230, 416529563, 835323783 Code(s): O09.33 - SUPRVSN OF PREG W INSUFFICIENT ANTENAT CARE, THIRD TRIMESTER Status: Acute Current Visit: Yes (2) Anemia affecting in third trimester SNOMED Code(s): 76448900, 31230156 Code(s): O99.013 - ANEMIA COMPLICATING , THIRD TRIMESTER Status: Acute Current Visit: No (3) Impaired glucose tolerance during Status: Acute Current Visit: No (4) Not immune to rubella SNOMED Code(s): 522605471 Code(s): Z78.9 - OTHER SPECIFIED HEALTH STATUS Status: Acute Current Visit: No (5) care in third trimester SNOMED Code(s): 689672471, 00213412, 71168485, 477019506, 791144970 Code(s): Z34.93 - ENCNTR FOR SUPRVSN OF NORMAL PREG, UNSP, THIRD TRIMESTER Status: Acute Current Visit: No (6) (normal spontaneous vaginal delivery) SNOMED Code(s): 04936291, 289925798 Code(s): O80 - ENCOUNTER FOR FULL-TERM UNCOMPLICATED DELIVERY Status: Acute Current Visit: No - Problem List Review Problem List Initiated/Reviewed/Updated: Yes - My Orders Last 24 Hours: My Active Orders 04/28/19 12:28 Patient Status [ADT] Routine Notify Provider Vital Signs OB [RC] ASDIRECTED Notify Provider [RC] PRN POC Labs [RC] ASDIRECTED Pump Management, Intrathecal [RC] ASDIRECTED Up ad Heather [RC] ASDIRECTED Vital Signs [RC] 08,20 Acetaminophen [Tylenol] 650 mg PO Q4H PRN Carboprost Tromethamine [Hemabate DS] 250 mcg IM ASDIRECTED PRN Lidocaine 1% [Xylocaine-MPF 1%] 30 ml INJECT ASDIRECTED PRN Methylergonovine [Methergine] 0.2 mg IM ASDIRECTED PRN Ondansetron [Zofran] 4 mg IV Q4H PRN Sodium Chloride 0.9% [Saline Flush] 10 ml FLUSH ASDIRECTED PRN Tranexamic Acid [Cyklokapron] 1,000 mg Sodium Chloride 0.9% [Normal Saline] 100 ml IV ONETIME fentaNYL [Sublimaze] 50 mcg IVPUSH Q1H PRN miSOPROStol [Cytotec] 800 mcg RECTAL ASDIRECTED PRN Saline Lock Insert [OM.PC] Routine Resuscitation Status Routine 04/28/19 12:30 Lactated Ringers [Ringers, Lactated] 1,000 ml IV ASDIRECTED Oxytocin/Normal Saline [Pitocin in NS 30 UNIT/500 ML] 30 unit in 500 ml IV TITRATE 04/28/19 12:31 Nalbuphine [Nubain] 10 mg IV Q3H PRN Nalbuphine [Nubain] 20 mg IM Q3H PRN 04/28/19 14:00 Penicillin G Potassium [Pfizerpen] 3 millunits Sodium Chloride 0.9% [Normal Saline] 100 ml IV Q4HR 04/28/19 17:16 MISC TEST Routine 04/28/19 Lunch Clear Liquid Diet [DIET] - Assessment Assessment:: 28-year-old, now , status post at 39w0d - Plan Plan:: 1. Initiate routine orders 2. Bottlefeeding 3. Anticipate discharge 04/30/19 Lani Johnson MD
[2019-04-28] MEDS ORDERED: Oxytocin 10 Units/1 ML SDV IM PRN (17:30)
[2019-04-28] MEDS ORDERED: Benzocaine/Menthol 20%-0.5% Spray 56 GM Canister TOP PRN (17:30)
[2019-04-28] MEDS ORDERED: Simethicone 80 MG Tab.Chew PO PRN (17:30)
[2019-04-28] MEDS: Acetaminophen 325 MG Tab PO PRN (21:22)
[2019-04-29] MEDS: Docusate Sodium 100 MG Cap PO PRN (08:49)
[2019-04-29] MEDS: Prenatal Multivitamin with Calcium/Folic Acid/Iron Tab PO SCH (08:49)
[2019-04-29] MEDS: Ibuprofen 800 MG Tab PO PRN ×2 (08:49→17:01)
[2019-04-29] MEDS: Acetaminophen 325 MG Tab PO PRN ×2 (12:10→17:01)
--- NOTE | 2019-04-29 23:27 | PCM.PNPP ---
- General Info Date of Service: 04/29/19 Subjective Update: 28-year-old, now , PPD#1 status post at 39w0d. Patient is ambulating without difficulty. She is tolerating a general diet. Reports back pain today. Bleeding is decreasing. Denies dizziness, lightheadedness, fever or chills. Nursing staff noted that patient seemed very sensitive to anything uncomfortable including uterine massage and blood pressure checks. I did address this with patient given her positive UDS. She denies MDMA use but does admit to using "pain pills" during because of her back pain. She said the amount she took per day varied based on what she had access to. No other concerns per nursing staff. Functional Status: Reports: Tolerating Diet, Ambulating, Urinating - Review of Systems General: Reports: Fatigue HEENT: Reports: No Symptoms Pulmonary: Reports: No Symptoms Cardiovascular: Reports: No Symptoms Gastrointestinal: Reports: Abdominal Pain Genitourinary: Reports: No Symptoms Musculoskeletal: Reports: Back Pain Skin: Reports: No Symptoms Neurological: Reports: No Symptoms - General Info Date of Service: 04/29/19 - Patient Data Vital Signs - Most Recent: Last Vital Signs Temp 36.7 C 04/29/19 19:52 Pulse 115 H 04/29/19 19:52 Resp 16 04/29/19 19:52 BP 121/72 04/29/19 19:52 Pulse Ox 96 04/29/19 19:52 Weight - Most Recent: 75.296 kg I&O - Last 24 Hours: Intake & Output 04/29/19 04/29/19 04/30/19 14:59 22:59 06:59 Intake Total 800 Balance 800 Med Orders - Current: Current Medications Acetaminophen (Tylenol) 650 mg PO Q4H PRN PRN Reason: Pain (Mild 1-3) and fever Last Admin: 04/29/19 17:01 Dose: 650 mg Benzocaine/Menthol (Dermoplast Pain Relief [place]) 0 gm TOP Q4H PRN PRN Reason: Perineal comfort measures Last Admin: 04/28/19 21:22 Dose: 1 applic Carboprost Tromethamine (Hemabate Ds) 250 mcg IM ASDIRECTED PRN PRN Reason: HEMORRHAGE Docusate Sodium (Colace) 100 mg PO BID PRN PRN Reason: Constipation Last Admin: 04/29/19 08:49 Dose: 100 mg Oxytocin/Sodium Chloride (Pitocin In Ns 30 Unit/500 Ml) 30 unit in 500 mls @ 2 mls/hr IV TITRATE PRIYA; Protocol Last Titration: 04/28/19 17:45 Dose: Infused Tranexamic Acid 1,000 mg/ (Sodium Chloride) 110 mls @ 660 mls/hr IV ONETIME PRN PRN Reason: Bleeding Ibuprofen (Motrin) 800 mg PO Q8H PRN PRN Reason: Mild Pain or Fever Last Admin: 04/29/19 17:01 Dose: 800 mg Methylergonovine Maleate (Methergine) 0.2 mg IM ASDIRECTED PRN PRN Reason: Hemorrhage Misoprostol (Cytotec) 800 mcg RECTAL ASDIRECTED PRN PRN Reason: Hemorrhage Ondansetron HCl (Zofran) 4 mg IV Q4H PRN PRN Reason: Nausea/Vomiting Last Admin: 04/28/19 13:30 Dose: 4 mg Oxytocin (Pitocin) 10 unit IM ONETIME PRN PRN Reason: Bleeding Prenat Multivit/[place]/Iron/Folic Ac ( Plus Iron) 1 each PO DAILY PRIYA Last Admin: 04/29/19 08:49 Dose: 1 each Simethicone (Simethicone) 80 mg PO Q4H PRN PRN Reason: Gas Sodium Chloride (Saline Flush) 10 ml FLUSH ASDIRECTED PRN PRN Reason: Keep Vein Open Discontinued Medications Ephedrine Sulfate (Ephedrine Sulfate) Confirm Administered Dose 50 mg .ROUTE .STK-MED ONE Stop: 04/28/19 13:24 Last Admin: 04/28/19 18:16 Dose: Not Given Epinephrine HCl (Adrenalin) Confirm Administered Dose 1 mg .ROUTE .STK-MED ONE Stop: 04/28/19 13:02 Last Admin: 04/28/19 18:03 Dose: Not Given Fentanyl (Sublimaze) 50 mcg IVPUSH Q1H PRN PRN Reason: Pain (moderate 4-6) Fentanyl (Sublimaze) Confirm Administered Dose 100 mcg .ROUTE .STK-MED ONE Stop: 04/28/19 13:02 Last Admin: 04/28/19 18:03 Dose: Not Given Lactated Ringer's (Ringers, Lactated) 500 mls @ 999 mls/hr IV .BOLUS ONE Stop: 04/28/19 12:58 Last Admin: 04/28/19 17:59 Dose: Not Given Lactated Ringer's (Ringers, Lactated) 1,000 mls @ 125 mls/hr IV ASDIRECTED [facility] Last Admin: 04/28/19 13:40 Dose: 150 mls/hr Penicillin G Potassium 5 (millunits/ Sodium Chloride) 100 mls @ 200 mls/hr IV ONETIME ONE Stop: 04/28/19 13:14 Last Admin: 04/28/19 12:45 Dose: 200 mls/hr Penicillin G Potassium 3 (millunits/ Sodium Chloride) 100 mls @ 200 mls/hr IV Q4HR [facility] Last Admin: 04/28/19 18:04 Dose: Not Given Lidocaine HCl (Xylocaine-Mpf 1%) 30 ml INJECT ASDIRECTED PRN PRN Reason: Perineal Repair Nalbuphine HCl (Nubain) 20 mg IM Q3H PRN PRN Reason: Pain Nalbuphine HCl (Nubain) 10 mg IV Q3H PRN PRN Reason: Pain Sufentanil Citrate (Sufenta) Confirm Administered Dose 50 mcg .ROUTE .STK-MED ONE Stop: 04/28/19 13:03 Last Admin: 04/28/19 18:03 Dose: Not Given - Infant Interaction Disposition, : to Nursery Feeding: Bottle Fed Infant Support Person: Significant Other - Recovery Exam Fundal Tone: Firm Fundal Level: 2 Fingerbreadths Below Umbilicus Fundal Placement: Midline Lochia Amount: Small Lochia Color: Rubra/Red Perineum Description: Intact, Minimal Bruising/Swelling Episiotomy/Laceration: None Bladder Status: Voiding - Exam General: Alert, Oriented HEENT: Pupils Equal, Pupils Reactive Lungs: Clear to Auscultation, Normal Respiratory Effort Cardiovascular: Regular Rate, Regular Rhythm, No Murmurs Extremities: No Pedal Edema Skin: Warm, Dry, Intact - Problem List & Annotations (1) Late care affecting in third trimester SNOMED Code(s): 409930211, 942443651, 547943571 Code(s): O09.33 - SUPRVSN OF PREG W INSUFFICIENT ANTENAT CARE, THIRD TRIMESTER Status: Acute Current Visit: Yes (2) Anemia affecting in third trimester SNOMED Code(s): 59546491, 74369468 Code(s): O99.013 - ANEMIA COMPLICATING , THIRD TRIMESTER Status: Acute Current Visit: No (3) Impaired glucose tolerance during Status: Acute Current Visit: No (4) Not immune to rubella SNOMED Code(s): 053636720 Code(s): Z78.9 - OTHER SPECIFIED HEALTH STATUS Status: Acute Current Visit: No (5) care in third trimester SNOMED Code(s): 868915302, 98258796, 41859145, 665684953, 922565602 Code(s): Z34.93 - ENCNTR FOR SUPRVSN OF NORMAL PREG, UNSP, THIRD TRIMESTER Status: Acute Current Visit: No (6) (normal spontaneous vaginal delivery) SNOMED Code(s): 25758846, 343612027 Code(s): O80 - ENCOUNTER FOR FULL-TERM UNCOMPLICATED DELIVERY Status: Acute Current Visit: No (7) Drug use affecting in third trimester SNOMED Code(s): 82744001, 78756692, 103211841 Code(s): O99.323 - DRUG USE COMPLICATING , THIRD TRIMESTER Status : Acute Current Visit: Yes Annotation/Comment:: Admits to oxycodone use; UDS positive for MDMA and oxycodone (confirmatory testing pending) - Problem List Review Problem List Initiated/Reviewed/Updated: Yes - My Orders Last 24 Hours: My Active Orders 04/29/19 09:00 Vit with Ca/FA/Iron [ Plus Iron] 1 each PO DAILY - Assessment Assessment:: 28-year-old, now , PPD#1 status post at 39w0d - Plan Plan:: 1. Continue routine orders 2. Bottlefeeding 3. Anticipate discharge 04/30/19 Lani Johnson MD
[2019-04-30] MEDS: Docusate Sodium 100 MG Cap PO PRN (00:15)
[2019-04-30] MEDS: Acetaminophen 325 MG Tab PO PRN ×2 (00:18→08:54)
[2019-04-30] MEDS: Ibuprofen 800 MG Tab PO PRN ×2 (00:59→08:54)
[2019-04-30] MEDS ORDERED: Benzocaine/Cetylpyridinium/Menthol Lozenge MUCMEM PRN (01:06)
[2019-04-30] MEDS: Prenatal Multivitamin with Calcium/Folic Acid/Iron Tab PO SCH (08:54)
[2019-04-30 09:33] VITALS: BP 137/77; PULSE 73
[2019-04-30] MEDS ORDERED: Measles, Mumps & Rubella Vaccine 0.5 ML SDV SUBCUT ONE (09:50)
[2019-04-30] MEDS ORDERED: fentaNYL 100 MCG/2 ML SDV ITHECAL ONE (10:44)
[2019-04-30] MEDS ORDERED: ePHEDrine 50 MG/ML SDV IV ONE (10:44)
[2019-04-30] MEDS ORDERED: EPINEPHrine 1 MG/1 ML Amp ONE (10:44)
--- NOTE | 2019-04-30 13:33 | PCM.DCSUM1 ---
Discharge Summary - Hospital Course Free Text/Narrative:: 28-year-old PPD#2 status post at 39w0d Diagnosis: Stroke: No - Discharge Data Discharge Date: 04/30/19 Discharge Disposition: Home, Self-Care 01 Condition: Good - Referral to Home Health Primary Care Physician: Jennifer Johnson MD - Discharge Diagnosis/Problem(s) (1) Late care affecting in third trimester SNOMED Code(s): 537706951, 729376880, 082021546 ICD Code: O09.33 - SUPRVSN OF PREG W INSUFFICIENT ANTENAT CARE, THIRD TRIMESTER Status: Acute (2) Anemia affecting in third trimester SNOMED Code(s): 68473954, 22355443 ICD Code: O99.013 - ANEMIA COMPLICATING , THIRD TRIMESTER Status: Acute (3) Impaired glucose tolerance during Status: Acute (4) Not immune to rubella SNOMED Code(s): 707231234 ICD Code: Z78.9 - OTHER SPECIFIED HEALTH STATUS Status: Acute (5) care in third trimester SNOMED Code(s): 758386681, 45762993, 08873824, 368203007, 063039387 ICD Code: Z34.93 - ENCNTR FOR SUPRVSN OF NORMAL PREG, UNSP, THIRD TRIMESTER Status: Acute (6) (normal spontaneous vaginal delivery) SNOMED Code(s): 74902727, 736759745 ICD Code: O80 - ENCOUNTER FOR FULL-TERM UNCOMPLICATED DELIVERY Status: Acute (7) Drug use affecting in third trimester SNOMED Code(s): 21455763, 64680939, 707235367 ICD Code: O99.323 - DRUG USE COMPLICATING , THIRD TRIMESTER Status : Acute Problem Details: Admits to oxycodone use; UDS positive for MDMA and oxycodone (confirmatory testing pending) - Patient Summary/Data Operative Procedure(s) Performed: None Complications: None Consults: Consultations 04/28/19 17:30 Consult to Case Management/Automatic Bandsaw Tender [CONS] Routine Labs Pending at D/C: UDS confirmatory testing for oxycodone and MDMA Recommended Follow-up Testing/Procedures: None Planned Operative Procedure(s) after DC: None Hospital Course: Please see subjective section - Patient Instructions Diet: Regular Diet as Tolerated, Drink 8-10+ Glasses/Day Driving: May Drive Today Showering/Bathing: May Shower Notify Provider of: Fever, Increased Pain, Swelling and Redness, Drainage, Nausea and/or Vomiting - Discharge Plan *PRESCRIPTION DRUG MONITORING PROGRAM REVIEWED*: Not Applicable *COPY OF PRESCRIPTION DRUG MONITORING REPORT IN PATIENT FATOU: Not Applicable Home Medications: Home Meds Acetaminophen [Tylenol] 650 mg PO Q4H PRN tablet 04/30/19 [Rx] Docusate Sodium [Colace] 100 mg PO BID PRN cap 04/30/19 [Rx] Ibuprofen [Motrin] 800 mg PO Q8H PRN tablet 04/30/19 [Rx] Patient Handouts: Vaginal Delivery, SIDS Prevention Information, [id number] - Discharge Summary/Plan Comment DC Time >30 min.: No Discharge Summary/Plan Comment: Discharge home today. Follow-up in 6-8 weeks for visit. Patient did receive a score of 15 on the depression screen. She states she does not have much help at home. FOB is involved. Denies any thoughts of harming herself or her children. Does admit to feeling overwhelmed at the idea of caring for all of her children. Declined services at this time. Lani Johnson MD - General Info Date of Service: 04/30/19 Subjective Update: PPD#2. Patient is doing well. Vaginal bleeding has decreased. Does complain of some back pain and lower abdominal cramping. Does get a little better with ibuprofen. Patient had been taking oxycodone at home for her back pain (not prescribed). Eating well. No dizziness, lightheadedness, fever or chills. Urinating and passing gas. Tolerating a general diet. Started on oral iron. No concerns per nursing staff. Functional Status: Reports: Pain Controlled, Tolerating Diet, Ambulating, Urinating - Review of Systems General: Reports: No Symptoms HEENT: Reports: No Symptoms Pulmonary: Reports: No Symptoms Cardiovascular: Reports: No Symptoms Gastrointestinal: Reports: Abdominal Pain Genitourinary: Reports: No Symptoms Musculoskeletal: Reports: Back Pain Skin: Reports: No Symptoms Neurological: Reports: No Symptoms - Patient Data Vitals - Most Recent: Last Vital Signs Temp 36.7 C 04/29/19 19:52 Pulse 73 04/30/19 08:46 Resp 16 04/30/19 08:46 BP 137/77 04/30/19 08:46 Pulse Ox 96 04/29/19 19:52 Weight - Most Recent: 75.296 kg Med Orders - Current: Current Medications Acetaminophen (Tylenol) 650 mg PO Q4H PRN PRN Reason: Pain (Mild 1-3) and fever Last Admin: 04/30/19 08:54 Dose: 650 mg Benzocaine/Menthol (Dermoplast Pain Relief [place]) 0 gm TOP Q4H PRN PRN Reason: Perineal comfort measures Last Admin: 04/28/19 21:22 Dose: 1 applic Benzocaine/Menthol (Cepacol Sore Throat) 1 lozenge MUCMEM Q4H PRN PRN Reason: Pain Last Admin: 04/30/19 01:47 Dose: 1 lozenge Carboprost Tromethamine (Hemabate Ds) 250 mcg IM ASDIRECTED PRN PRN Reason: HEMORRHAGE Docusate Sodium (Colace) 100 mg PO BID PRN PRN Reason: Constipation Last Admin: 04/30/19 00:15 Dose: 100 mg Oxytocin/Sodium Chloride (Pitocin In Ns 30 Unit/500 Ml) 30 unit in 500 mls @ 2 mls/hr IV TITRATE PRIYA; Protocol Last Titration: 04/28/19 17:45 Dose: Infused Tranexamic Acid 1,000 mg/ (Sodium Chloride) 110 mls @ 660 mls/hr IV ONETIME PRN PRN Reason: Bleeding Ibuprofen (Motrin) 800 mg PO Q8H PRN PRN Reason: Mild Pain or Fever Last Admin: 04/30/19 08:54 Dose: 800 mg Methylergonovine Maleate (Methergine) 0.2 mg IM ASDIRECTED PRN PRN Reason: Hemorrhage Misoprostol (Cytotec) 800 mcg RECTAL ASDIRECTED PRN PRN Reason: Hemorrhage Ondansetron HCl (Zofran) 4 mg IV Q4H PRN PRN Reason: Nausea/Vomiting Last Admin: 04/28/19 13:30 Dose: 4 mg Oxytocin (Pitocin) 10 unit IM ONETIME PRN PRN Reason: Bleeding Prenat Multivit/Station Detective/Iron/Folic Ac ( Plus Iron) 1 each PO DAILY PRIYA Last Admin: 04/30/19 08:54 Dose: 1 each Simethicone (Simethicone) 80 mg PO Q4H PRN PRN Reason: Gas Sodium Chloride (Saline Flush) 10 ml FLUSH ASDIRECTED PRN PRN Reason: Keep Vein Open Discontinued Medications Ephedrine Sulfate (Ephedrine Sulfate) Confirm Administered Dose 50 mg .ROUTE .STK-MED ONE Stop: 04/28/19 13:24 Last Admin: 04/28/19 18:16 Dose: Not Given Epinephrine HCl (Adrenalin) Confirm Administered Dose 1 mg .ROUTE .STK-MED ONE Stop: 04/28/19 13:02 Last Admin: 04/28/19 18:03 Dose: Not Given Fentanyl (Sublimaze) 50 mcg IVPUSH Q1H PRN PRN Reason: Pain (moderate 4-6) Fentanyl (Sublimaze) Confirm Administered Dose 100 mcg .ROUTE .STK-MED ONE Stop: 04/28/19 13:02 Last Admin: 04/28/19 18:03 Dose: Not Given Lactated Ringer's (Ringers, Lactated) 500 mls @ 999 mls/hr IV .BOLUS ONE Stop: 04/28/19 12:58 Last Admin: 04/28/19 17:59 Dose: Not Given Lactated Ringer's (Ringers, Lactated) 1,000 mls @ 125 mls/hr IV ASDIRECTED [facility] Last Admin: 04/28/19 13:40 Dose: 150 mls/hr Penicillin G Potassium 5 (millunits/ Sodium Chloride) 100 mls @ 200 mls/hr IV ONETIME ONE Stop: 04/28/19 13:14 Last Admin: 04/28/19 12:45 Dose: 200 mls/hr Penicillin G Potassium 3 (millunits/ Sodium Chloride) 100 mls @ 200 mls/hr IV Q4HR [facility] Last Admin: 04/28/19 18:04 Dose: Not Given Lidocaine HCl (Xylocaine-Mpf 1%) 30 ml INJECT ASDIRECTED PRN PRN Reason: Perineal Repair Measles/Mumps/Rubella Vaccine Live (M-M-R Ii Vaccine) 0.5 ml SUBCUT .ONCE ONE Stop: 04/30/19 09:51 Last Admin: 04/30/19 12:34 Dose: 0.5 ml Nalbuphine HCl (Nubain) 20 mg IM Q3H PRN PRN Reason: Pain Nalbuphine HCl (Nubain) 10 mg IV Q3H PRN PRN Reason: Pain Sufentanil Citrate (Sufenta) Confirm Administered Dose 50 mcg .ROUTE .STK-MED ONE Stop: 04/28/19 13:03 Last Admin: 04/28/19 18:03 Dose: Not Given - Exam General: Reports: Alert, Oriented Lungs: Reports: Clear to Auscultation, Normal Respiratory Effort Cardiovascular: Reports: Regular Rate, Regular Rhythm, No Murmurs GI/Abdominal Exam: Soft, No Distention Back Exam: Reports: Normal Inspection Extremities: Normal Inspection Skin: Reports: Warm, Dry, Intact
== END 2019-04-30 10:45 | disposition home or self-care (01) | DRG 806 ==
LOC: DL.OBCHECK 12:13 → DL.OB 12:28 → UNDOADMOB 12:28 → INTOOBSV 13:00 → OBSVTOIN 13:00 → DL.OB 14:26 → OBSVTOIN 14:26
PROVIDERS: ADMIT Family Medicine; ATTEND Family Medicine
PROC: 10E0XZZ Delivery of Products of Conception, External Approach (ICD-10-PCS; principal; 2019-04-28)
DX: O99.02 Anemia complicating childbirth (principal); O99.324 Drug use complicating childbirth; Z37.0 Single live birth; D64.9 Anemia, unspecified; Z3A.39 39 weeks gestation of pregnancy; F11.90 Opioid use, unspecified, uncomplicated; F15.90 Other stimulant use, unspecified, uncomplicated; Z79.899 Other long term (current) drug therapy; I95.9 Hypotension, unspecified; O75.89 Other specified complications of labor and delivery; O76 Abnormality in fetal heart rate and rhythm complicating labor and delivery; O99.824 Streptococcus B carrier state complicating childbirth
CPT/HCPCS: 36415; 51701; 59409; 80305-QW; 85027; 90471; 90707; A9270-GY; G0480; J0171; J2405; J2540; J2590; J3010; J7050; J7120

== ENCOUNTER 2020-02-15 17:08 | Emergency (ER) | payer MEDICAID, OTHER ==
[2020-02-15 17:20] VITALS: BP 120/70; PULSE 108
== END 2020-02-15 17:24 | disposition left against medical advice (07) ==
LOC: DL.ED 17:08
DX: Z53.21 Procedure and treatment not carried out due to patient leaving prior to being seen by health care provider (principal)